=== PATIENT | male | born 1985 | race Hispanic/Latino ===

== ENCOUNTER 2024-06-03 19:49 | Emergency (ER) | payer SELFPAY ==
[~2024-06-03] VITALS: Ht 160 cm; Wt 88.5 kg
[2024-06-03 21:13] LABS: BASOPHILS # (AUTO) 0.03 K/uL (0.00-0.20); BASOPHILS % (AUTO) 0.6 % (0.0-5.0); EOSINOPHILS # (AUTO) 0.14 K/uL (0.00-0.70); EOSINOPHILS % (AUTO) 2.6 % (0.0-8.0); HEMATOCRIT 42.4 % (42-54); LYMPHOCYTES # (AUTO) 1.5 K/uL (1.0-4.8); LYMPHOCYTES % (AUTO) 28.6 % (21.0-51.0); MEAN CORPUSCULAR HEMOGLOBIN 30.2 pg (27.0-33.0); MEAN CORPUSCULAR VOLUME 88.9 fL (79-99); MONOCYTES # (AUTO) 0.4 K/uL (0.1-1.0); MONOCYTES % (AUTO) 8.1 % (3.0-13.0); NEUTROPHILS # (AUTO) 3.2 K/uL (1.8-7.7); NEUTROPHILS % (AUTO) 60.1 % (40.0-77.0); PLATELET COUNT (AUTO) 193 K/uL (130-400); RED BLOOD CELL COUNT(AUTO) 4.77 MIL/uL (4.50-6.20); WHITE BLOOD COUNT (AUTO) 5.3 K/uL (4.8-10.8)
[2024-06-03 21:38] LABS: POTASSIUM 3.9 mmol/L (3.5-5.1)
[2024-06-03] MEDS ORDERED: KETO15CR2 TP (21:49)
[2024-06-03 22:02] VITALS: BP 130/76; PULSE 66; RESP 20; TEMP 98.6; O2SAT 99
[2024-06-03] MEDS ORDERED: IBUP-2077 PO (22:13)
== END 2024-06-03 22:04 | disposition home or self-care (01) ==
LOC: EDH 19:49
DX: B35.3 Tinea pedis (principal); F31.9 Bipolar disorder, unspecified; F41.9 Anxiety disorder, unspecified
CPT/HCPCS: 36415; 73630; 80048; 83605; 85025; 87040